=== PATIENT | female | born 1965 | race Hispanic/Latino ===

== ENCOUNTER 2017-09-07 15:46 | Emergency (ER) | payer SELFPAY ==
[~2017-09-07] VITALS: Ht 165.1 cm; Wt 92.1 kg
[2017-09-07] MEDS ORDERED: CIPRO500 MG PO (16:27)
[2017-09-07 17:39] VITALS: BP 168/86
== END 2017-09-07 17:40 | disposition home or self-care (01) ==
LOC: FSED 15:46
DX: R30.0 Dysuria (principal); N30.91 Cystitis, unspecified with hematuria; R03.0 Elevated blood-pressure reading, without diagnosis of hypertension
CPT/HCPCS: 81003; 87086; 99283